=== PATIENT | female | born 1985 | race Caucasian/White ===

== ENCOUNTER 2023-09-28 07:52 | Emergency (ER) | payer BC, MEDICAID, OTHER ==
[~2023-09-28] VITALS: Ht 177.8 cm; Wt 105.0 kg
[2023-09-28] MEDS ORDERED: ONDANSETRON ODT 4 MG TAB PO ONE (08:30)
[2023-09-28] MEDS ORDERED: KETOROLAC TROMETH 60MG/2ML VIAL IM ONE (08:30)
[2023-09-28 08:40] VITALS: BP 149/75; PULSE 81; RESP 28; TEMP 97.6; O2SAT 100
[2023-09-28] MEDS ORDERED: METH-1182 PO (09:51)
[2023-09-28] MEDS ORDERED: IBUP-1456 PO (09:51)
== END 2023-09-28 10:01 | disposition home or self-care (01) ==
LOC: EDBD 07:52 → ER 07:52
DX: S52.592A Other fractures of lower end of left radius, initial encounter for closed fracture (principal); S52.615A Nondisplaced fracture of left ulna styloid process, initial encounter for closed fracture; Z79.899 Other long term (current) drug therapy; V43.52XA Car driver injured in collision with other type car in traffic accident, initial encounter; Y93.I9 Activity, other involving external motion; Y92.89 Other specified places as the place of occurrence of the external cause; Y99.8 Other external cause status
CPT/HCPCS: 29125; 72040; 73110; 96372; 99284; J1885; Q0162